=== PATIENT | male | born 1925 | race Caucasian/White ===

== ENCOUNTER 2016-07-20 20:42 | Inpatient (IN) | payer MEDICARE, BC ==
[~2016-07-20 20:42] MED LIST: ADULT ASPIRIN81 MG PO; ADULT LOW DOSE81 MG PO; ADVANCED PAIN200 MG PO; ALEVE220 M1 PO; CARDURA8 M1 PO; CARDURA8 MG PO; CARVEDILOL25 MG PO; COREG; CRESTOR; CRESTOR20 MG PO; CRESTOR20 MG/TAB PO; CYMBALTA30 M1 PO; DOXAZOSIN; FUROSEMIDE40 M1 PO; GABAPENTIN400 M1 PO; KLOR-CON; LASIX; LISINOPRIL; LISINOPRIL40 MG PO; LORTAB 5/500 TA1 TAB PO; NORVASC5 MG PO; POTASSIUM CHLO10 MEQ PO
[2016-07-20] MEDS ORDERED: MYRBETRIQ25 M1 PO (21:14)
[2016-07-20 22:12] LABS: BASO % 0.2 % (0-2); EOS % 2.4 % (0-7); EOSINOPHIL ABSOLUTE COUNT 0.1 tho/cmm (0.0-0.7); HCT-HEMATOCRIT 35.9 % (36.0-53.5); HGB-HEMOGLOBIN 11.1 gm/dl (13.5-17.0); IMMATURE GRANULOCYTES ABSOLUTE 0.02 tho/cmm (0-0.03); IMMATURE GRANULOCYTES PERCENT 0.4 % (0-0.3); LYMPH % 29.5 % (20-45); LYMPH ABSOLUTE COUNT 1.6 tho/cmm (0.8-4.5); MCHC MEAN CORPUSCULAR HGB CONC 30.9 % (32.0-36.0); MEAN PLATELET VOLUME 11.2 cmc (9.4-12.4); MONO % 14.7 % (0-12); MONOCYTE ABSOLUTE COUNT 0.8 tho/cmm (0.0-1.2); NEUTROPHIL ABSOLUTE COUNT 2.9 tho/cmm (1.6-8.0); NEUTROPHIL-AUTOMATED 2.9 tho/cmm (1.6-8.0); NEUTROPHILS % 52.8 % (40-80); PLATELET COUNT 84 tho/cmm (150-450); RED CELL DISTRIBUTION WIDTH 14.2 % (12.4-16.4); WHITE BLOOD COUNT 5.4 tho/cmm (4.0-10.0)
[2016-07-20 22:33] LABS: ALB/GLOB RATIO 0.9 (0.8-2.0); ALBUMIN 3.3 g/dl (3.5-5.0); ALKALINE PHOSPHATASE 129 U/L (33-138); ALT/SGPT 27 U/L (12-78); ANION GAP 12 mmol/L (0-20); AST/SGOT 30 U/L (10-40); BILIRUBIN,TOTAL 0.8 mg/dl (0.0-1.5); BLOOD UREA NITROGEN 29 mg/dl (6-24); CALCIUM 8.3 mg/dl (8.5-10.5); CARBON DIOXIDE-VENOUS 31 mmol/L (22-32); CHLORIDE 106 mmol/l (96-110); CREATININE 1.51 mg/dl (0.60-1.30); GLUCOSE 112 mg/dL (70-110); POTASSIUM 4.8 mmol/L (3.7-5.1); SODIUM 144 mmol/L (135-145); eGFR VALUE FOR BLACK 47 mL/Min
[2016-07-21 05:50] LABS: HCT-HEMATOCRIT 34.8 % (36.0-53.5); IMMATURE GRANULOCYTES ABSOLUTE 0.01 tho/cmm (0-0.03); IMMATURE GRANULOCYTES PERCENT 0.3 % (0-0.3); LYMPH % 28.1 % (20-45); LYMPH ABSOLUTE COUNT 0.9 tho/cmm (0.8-4.5); MCH (MEAN CORPUSCULAR HGB) 30.4 pg (28.0-32.0); MCHC MEAN CORPUSCULAR HGB CONC 31.6 % (32.0-36.0); MCV (MEAN CELL VOLUME) 96.1 fl (82.0-96.0); MEAN PLATELET VOLUME 11.5 cmc (9.4-12.4); MONO % 2.4 % (0-12); MONOCYTE ABSOLUTE COUNT 0.1 tho/cmm (0.0-1.2); NEUTROPHIL ABSOLUTE COUNT 2.3 tho/cmm (1.6-8.0); NEUTROPHIL-AUTOMATED 2.3 tho/cmm (1.6-8.0); NEUTROPHILS % 69.2 % (40-80); PLATELET COUNT 88 tho/cmm (150-450); RED BLOOD COUNT 3.62 mil/cmm (4.40-5.70); WHITE BLOOD COUNT 3.3 tho/cmm (4.0-10.0)
[2016-07-21 06:41] LABS: ALB/GLOB RATIO 0.8 (0.8-2.0); ALKALINE PHOSPHATASE 123 U/L (33-138); ALT/SGPT 26 U/L (12-78); BILIRUBIN,TOTAL 0.9 mg/dl (0.0-1.5); BLOOD UREA NITROGEN 27 mg/dl (6-24); CALCIUM 8.2 mg/dl (8.5-10.5); CARBON DIOXIDE-VENOUS 29 mmol/L (22-32); CHLORIDE 106 mmol/l (96-110); CREATININE 1.36 mg/dl (0.60-1.30); GLUCOSE 159 mg/dL (70-110); SODIUM 144 mmol/L (135-145); eGFR VALUE FOR BLACK 53 mL/Min
[2016-07-21 06:50] LABS: ANION GAP 14 mmol/L (0-20); AST/SGOT 38 U/L (10-40)
[2016-07-22 05:36] LABS: ABG CO2 ARTERIAL 32 mmol/L (21-27); ARTERIAL BLD GAS O2 SATURATION 96 % (95-98); ARTERIAL BLOOD GAS PCO2 50 mmHg (32-45); ARTERIAL PO2 79 mmHg (70-100); BICARBONATE 30 mmol/L (21-28); BLOOD GAS BASE EXCESS 5 mM/L (-/+3)
[2016-07-22 06:10] LABS: HCT-HEMATOCRIT 34.1 % (36.0-53.5); HGB-HEMOGLOBIN 10.9 gm/dl (13.5-17.0); IMMATURE GRANULOCYTES ABSOLUTE 0.02 tho/cmm (0-0.03); IMMATURE GRANULOCYTES PERCENT 0.4 % (0-0.3); LYMPH % 17.8 % (20-45); LYMPH ABSOLUTE COUNT 0.9 tho/cmm (0.8-4.5); MCV (MEAN CELL VOLUME) 93.9 fl (82.0-96.0); MEAN PLATELET VOLUME 11.2 cmc (9.4-12.4); MONO % 5.2 % (0-12); MONOCYTE ABSOLUTE COUNT 0.3 tho/cmm (0.0-1.2); NEUTROPHIL ABSOLUTE COUNT 3.8 tho/cmm (1.6-8.0); NEUTROPHIL-AUTOMATED 3.8 tho/cmm (1.6-8.0); NEUTROPHILS % 76.6 % (40-80); PLATELET COUNT 86 tho/cmm (150-450); RED BLOOD COUNT 3.63 mil/cmm (4.40-5.70); RED CELL DISTRIBUTION WIDTH 13.8 % (12.4-16.4)
[2016-07-22 06:31] LABS: ANION GAP 12 mmol/L (0-20); BLOOD UREA NITROGEN 32 mg/dl (6-24); CALCIUM 8.1 mg/dl (8.5-10.5); CARBON DIOXIDE-VENOUS 30 mmol/L (22-32); CHLORIDE 103 mmol/l (96-110); GLUCOSE 166 mg/dL (70-110); SODIUM 141 mmol/L (135-145); eGFR VALUE FOR BLACK 62 mL/Min
[2016-07-22 06:34] LABS: POTASSIUM 3.7 mmol/L (3.7-5.1)
[2016-07-23 06:01] LABS: ANION GAP 11 mmol/L (0-20); BLOOD UREA NITROGEN 34 mg/dl (6-24); CALCIUM 8.1 mg/dl (8.5-10.5); CARBON DIOXIDE-VENOUS 35 mmol/L (22-32); CHLORIDE 101 mmol/l (96-110); CREATININE 1.22 mg/dl (0.60-1.30); GLUCOSE 163 mg/dL (70-110); POTASSIUM 3.3 mmol/L (3.7-5.1); SODIUM 144 mmol/L (135-145); eGFR VALUE FOR BLACK 61 mL/Min
[2016-07-24 06:32] LABS: ANION GAP 9 mmol/L (0-20); BLOOD UREA NITROGEN 33 mg/dl (6-24); CALCIUM 7.8 mg/dl (8.5-10.5); CARBON DIOXIDE-VENOUS 36 mmol/L (22-32); CHLORIDE 103 mmol/l (96-110); CREATININE 1.22 mg/dl (0.60-1.30); GLUCOSE 141 mg/dL (70-110); POTASSIUM 3.1 mmol/L (3.7-5.1); SODIUM 145 mmol/L (135-145); eGFR VALUE FOR BLACK 61 mL/Min
[2016-07-25 07:35] LABS: ANION GAP 8 mmol/L (0-20); BLOOD UREA NITROGEN 27 mg/dl (6-24); CALCIUM 8.2 mg/dl (8.5-10.5); CARBON DIOXIDE-VENOUS 37 mmol/L (22-32); CHLORIDE 103 mmol/l (96-110); CREATININE 1.11 mg/dl (0.60-1.30); GLUCOSE 116 mg/dL (70-110); SODIUM 144 mmol/L (135-145); eGFR VALUE FOR BLACK 68 mL/Min
[2016-07-25 07:38] LABS: POTASSIUM 3.6 mmol/L (3.7-5.1)
[2016-07-26 05:49] LABS: ANION GAP 7 mmol/L (0-20); BLOOD UREA NITROGEN 27 mg/dl (6-24); CALCIUM 8.3 mg/dl (8.5-10.5); CARBON DIOXIDE-VENOUS 37 mmol/L (22-32); CHLORIDE 102 mmol/l (96-110); CREATININE 1.03 mg/dl (0.60-1.30); GLUCOSE 142 mg/dL (70-110); POTASSIUM 3.6 mmol/L (3.7-5.1); SODIUM 142 mmol/L (135-145); eGFR VALUE FOR BLACK 74 mL/Min
[2016-07-27 06:38] LABS: ANION GAP 7 mmol/L (0-20); BLOOD UREA NITROGEN 30 mg/dl (6-24); CALCIUM 8.5 mg/dl (8.5-10.5); CARBON DIOXIDE-VENOUS 37 mmol/L (22-32); CHLORIDE 101 mmol/l (96-110); CREATININE 1.03 mg/dl (0.60-1.30); GLUCOSE 119 mg/dL (70-110); POTASSIUM 3.8 mmol/L (3.7-5.1); SODIUM 141 mmol/L (135-145); eGFR VALUE FOR BLACK 74 mL/Min
[2016-07-27] MEDS ORDERED: ZITHROMAX500 M2 PO (10:25)
[2016-07-27] MEDS ORDERED: IPRAT-ALBUT 0.5-3 ML INH (10:26)
[2016-07-27] MEDS ORDERED: TYLENOL325 M2 PO (17:12)
[2016-07-27] MEDS ORDERED: COLACE100 M1 PO (17:13)
[2016-07-27] MEDS ORDERED: PREDNISONE10 M1 PO (17:14)
[2016-07-27] MEDS ORDERED: MULTI-VITAMIN1 EAC3 PO (17:21)
== END 2016-07-27 17:49 | DRG 190 ==
LOC: EDMED 20:42 → EMR2 23:36 → 5WE 07-21 00:50
PROVIDERS: Emergency Medicine; Family Medicine; Hospitalist; Internal Medicine Pulmonary Disease; ADMIT Internal Medicine
PROC: 05HC33Z Insertion of Infusion Device into Left Basilic Vein, Percutaneous Approach (ICD-10-PCS; principal; 2016-07-21)
DX: J44.1 Chronic obstructive pulmonary disease with (acute) exacerbation (principal); J96.00 Acute respiratory failure, unspecified whether with hypoxia or hypercapnia; I50.33 Acute on chronic diastolic (congestive) heart failure; N17.9 Acute kidney failure, unspecified; D61.818 Other pancytopenia; D64.9 Anemia, unspecified
CPT/HCPCS: C1751; J0456; J1644; J1652; J1940; J2930; J7050; J7512

== ENCOUNTER 2016-08-03 10:02 | Emergency (ER) | payer MEDICARE, BC ==
[~2016-08-03 10:02] MED LIST changes: +COLACE100 M1 PO; +IPRAT-ALBUT 0.5-3 ML INH; +MULTI-VITAMIN1 EAC3 PO; +MYRBETRIQ25 M1 PO; +PREDNISONE10 M1 PO; +TYLENOL325 M2 PO; +ZITHROMAX500 M2 PO
[2016-08-03] MEDS ORDERED: ROSUVASTATIN CA20 MG PO (10:13)
[2016-08-03] MEDS ORDERED: NEURONTIN400 M1 PO (10:13)
[2016-08-03] MEDS ORDERED: NORVASC5 M2 PO (10:14)
[2016-08-03] MEDS ORDERED: COREG25 M1 PO (10:14)
[2016-08-03] MEDS ORDERED: LISINOPRIL40 M1 PO (10:14)
[2016-08-03] MEDS ORDERED: CARDURA8 M1 PO (10:15)
[2016-08-03] MEDS ORDERED: POTASSIUM CHLO10 ME2 PO (10:15)
[2016-08-03] MEDS ORDERED: CYMBALTA60 M1 PO (10:15)
[2016-08-03] MEDS ORDERED: ASPIRIN EC81 MG PO (10:16)
[2016-08-03] MEDS ORDERED: LASIX40 M1 PO (10:16)
[2016-08-03] MEDS ORDERED: MYRBETRIQ25 M1 PO (10:16)
[2016-08-03] MEDS ORDERED: COLACE100 M1 PO (10:17)
[2016-08-03] MEDS ORDERED: MULTIVITAMINS1 EAC7 PO (10:17)
[2016-08-03] MEDS ORDERED: SENOKOT-S TABL1 EACH PO (10:19)
[2016-08-03] MEDS ORDERED: MILK OF MAGNESIA PO (10:20)
[2016-08-03] MEDS ORDERED: DULCOLAX10 MG PR (10:21)
[2016-08-03] MEDS ORDERED: FLEET ENEMA133 ML PR (10:22)
[2016-08-03] MEDS ORDERED: TYLENOL325 M2 PO (10:24)
[2016-08-03] MEDS ORDERED: DEBROX15 M1 EACH EAR (10:25)
[2016-08-03 11:09] LABS: BASO % 0.1 % (0-2); EOS % 1.9 % (0-7); EOSINOPHIL ABSOLUTE COUNT 0.2 tho/cmm (0.0-0.7); HCT-HEMATOCRIT 39.7 % (36.0-53.5); HGB-HEMOGLOBIN 12.8 gm/dl (13.5-17.0); IMMATURE GRANULOCYTES ABSOLUTE 0.03 tho/cmm (0-0.03); IMMATURE GRANULOCYTES PERCENT 0.4 % (0-0.3); LYMPH % 17.3 % (20-45); LYMPH ABSOLUTE COUNT 1.3 tho/cmm (0.8-4.5); MCH (MEAN CORPUSCULAR HGB) 30.3 pg (28.0-32.0); MCHC MEAN CORPUSCULAR HGB CONC 32.2 % (32.0-36.0); MCV (MEAN CELL VOLUME) 94.1 fl (82.0-96.0); MEAN PLATELET VOLUME 10.8 cmc (9.4-12.4); MONO % 7.8 % (0-12); MONOCYTE ABSOLUTE COUNT 0.6 tho/cmm (0.0-1.2); NEUTROPHIL ABSOLUTE COUNT 5.6 tho/cmm (1.6-8.0); NEUTROPHIL-AUTOMATED 5.6 tho/cmm (1.6-8.0); NEUTROPHILS % 72.5 % (40-80); PLATELET COUNT 93 tho/cmm (150-450); RED BLOOD COUNT 4.22 mil/cmm (4.40-5.70); RED CELL DISTRIBUTION WIDTH 13.7 % (12.4-16.4); WHITE BLOOD COUNT 7.7 tho/cmm (4.0-10.0)
[2016-08-03 11:12] LABS: INR 1.1 INR (0.9-1.1); PROTHROMBIN TIME 12.3 SECONDS (9.0-13.6)
[2016-08-03 11:22] LABS: ANION GAP 9 mmol/L (0-20); BLOOD UREA NITROGEN 31 mg/dl (6-24); CALCIUM 8.5 mg/dl (8.5-10.5); CARBON DIOXIDE-VENOUS 32 mmol/L (22-32); CHLORIDE 104 mmol/l (96-110); CREATININE 1.29 mg/dl (0.60-1.30); GLUCOSE 167 mg/dL (70-110); MAGNESIUM 2.5 mg/dl (1.3-2.6); POTASSIUM 4.1 mmol/L (3.7-5.1); SODIUM 141 mmol/L (135-145); eGFR VALUE FOR BLACK 57 mL/Min
== END 2016-08-03 15:25 ==
LOC: EDMED 10:02
PROVIDERS: Emergency Medicine
DX: R55 Syncope and collapse (principal); E86.0 Dehydration; I10 Essential (primary) hypertension
CPT/HCPCS: J7030